=== PATIENT | male | born 2000 | race Caucasian/White ===

== ENCOUNTER 2025-05-17 16:15 | Emergency (ER) | payer OTHER ==
[~2025-05-17] VITALS: Ht 175.3 cm; Wt 120.2 kg
[~2025-05-17 16:15] MED LIST: AZIT200SU PO; Crutch1 EACH MISC; MUPI2TC TOP
[2025-05-17 17:07] VITALS: BP 142/88
== END 2025-05-17 20:42 | disposition home or self-care (01) ==
LOC: ER 16:15
DX: S43.402A Unspecified sprain of left shoulder joint, initial encounter (principal); X58.XXXA Exposure to other specified factors, initial encounter; Y93.11 Activity, swimming
CPT/HCPCS: 73030; 99283-25